=== PATIENT | female | born 1985 | race African-American/Black ===

== ENCOUNTER 2025-01-09 23:15 | Emergency (ER) | payer MEDICARE ==
[~2025-01-09] VITALS: Ht 160 cm; Wt 60.0 kg
[2025-01-09] MEDS: MAGNESIUM/ALUMINUM HYDROXIDE/SIMETHICONE 30ML UDC PO STA (23:18)
[2025-01-09 23:21] VITALS: TEMP 37; O2SAT 98
[2025-01-09] MEDS: SODIUM CHLORIDE 0.9% 1,000 ML IV ONE (23:52)
[2025-01-09] MEDS: ONDANSETRON HCL 4MG/2ML INJ IV STA (23:52)
[2025-01-09] MEDS: ACETAMINOPHEN 1000MG/100ML 100 ML IV ONE (23:52)
[2025-01-09 23:56] LABS: HEMATOCRIT. 38.5 % (36.0-48.0); HEMOGLOBIN. 12.6 g/dL (12.0-16.0); MEAN CORPUSCULAR HEMOGLOBIN 29.1 pg (28.0-32.0); MEAN CORPUSCULAR HGB CONC 32.7 g/dL (31.0-37.0); MEAN CORPUSCULAR VOLUME 88.9 fL (81.0-99.0); MEAN PLATELET VOLUME 9.3 fl (7.4-10.4); PLATELET 275 x1000/uL (130-400); RED BLOOD CELL COUNT 4.33 mill/uL (4.2-5.4); RED CELL DISTRIBUTION WIDTH 14.2 % (11.6-14.6); WHITE BLOOD COUNT 16.6 x1000/uL (4.5-11.0)
[2025-01-10 00:03] LABS: CHLORIDE 106 mEq/L (98-107); POTASSIUM 3.6 mEq/L (3.5-5.1); SODIUM 141 mEq/L (136-145)
[2025-01-10 00:04] LABS: CALCIUM 9.2 mg/dL (8.7-10.4); CARBON DIOXIDE 26 mEq/L (21-32)
[2025-01-10 00:09] LABS: CREATININE 0.8 mg/dL (0.6-1.0); GLUCOSE 102 mg/dL (70-105); UREA NITROGEN BLOOD 13 mg/dL (9-23)
[2025-01-10 00:11] LABS: ALANINE AMINOTRANSFERASE 22 IU/L (10-49); ALBUMIN 4.5 g/dL (3.2-4.8); ASPARTATE AMINOTRANSFERASE 24 IU/L (<34); BILIRUBIN DIRECT 0.2 mg/dL (<=3.0); DIFFERENTIAL COMMENT 1
[2025-01-10 00:12] LABS: BILIRUBIN TOTAL 0.7 mg/dL (0.1-1.0); PROTEIN TOTAL 7.9 g/dL (6.0-8.3)
[2025-01-10 00:13] LABS: ETHANOL BLOOD < 10 mg/dL (<10)
[2025-01-10 00:14] LABS: PROTHROMBIN TIME 10.3 sec (9.6-11.0)
[2025-01-10 01:11] LABS: HCG SCREEN NEGATIVE
[2025-01-10] MEDS ORDERED: ONDA4TAB50 MT (01:16)
[2025-01-10] MEDS ORDERED: ACET-2708 MT (01:16)
[2025-01-10 01:50] VITALS: BP 122/80; PULSE 71; RESP 17; O2SAT 100
[2025-01-10 02:07] LABS: CLARITY URINE CLOUDY (CLEAR); COLOR URINE YELLOW (YELLOW); GLUCOSE URINE NEGATIVE (NEGATIVE); KETONES URINE 1+ (NEGATIVE); LEUKOCYTE ESTERASE URINE 1+ (NEGATIVE); NITRITE URINE NEGATIVE (NEGATIVE); OCCULT BLOOD URINE 1+ (NEGATIVE); PROTEIN URINE 1+ (NEGATIVE); SPECIFIC GRAVITY URINE 1.017 (1.005-1.030); UROBILINOGEN URINE 0.2 E.U./dL (0.2-1.0)
[2025-01-10 02:17] LABS: *AMPHETAMINES SCREEN URINE NEGATIVE (NEGATIVE); *BARBITURATES SCREEN URINE NEGATIVE (NEGATIVE); *BENZODIAZEPINES SCREEN URINE NEGATIVE (NEGATIVE); *COCAINE SCREEN URINE NEGATIVE (NEGATIVE); CANNABINOID URINE SCREEN NEGATIVE (NEGATIVE); ECSTASY MDMA SCREEN URINE NEGATIVE (NEGATIVE); METHADONE URINE SCREEN NEGATIVE (NEGATIVE); OPIATES URINE SCREEN NEGATIVE (NEGATIVE); PHENCYCLIDINE URINE SCREEN NEGATIVE (NEGATIVE)
[2025-01-10 03:41] LABS: SQUAMOUS EPITHELIAL CELL URINE 1+ /lpf (RARE/1+)
[2025-01-10 03:42] LABS: RBC URINE 0-2 /hpf (0-2)
[2025-01-10 03:44] LABS: BACTERIA URINE 1+
[2025-01-10 06:17] LABS: PLATELET ESTIMATE NORMAL
== END 2025-01-10 01:52 | disposition home or self-care (01) ==
LOC: ER 23:15
DX: R10.84 Generalized abdominal pain (principal); R11.0 Nausea; N18.9 Chronic kidney disease, unspecified; Z87.19 Personal history of other diseases of the digestive system; Z79.899 Other long term (current) drug therapy
CPT/HCPCS: 80076; 80048; 80320; 84703; 83690; 85025; 85610; 36415; 96365; 96375; 99284; 80305; 81003; J2405; J7030; G0480; J0131